=== PATIENT | male | born 1995 | race Caucasian/White ===

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

== ENCOUNTER → 2017-06-14 | Outpatient (CLI) | payer OTHER ==
[~2017-06-14] MED LIST: FLUO20CA19 PO; HYDR-3713 PO; IBUP-1022 PO; LEVA1TAB2 PO; PROZ40CA PO; STRA10CA PO; STRA80CA PO
--- NOTE | 2017-06-14 10:29 | REP ---
SCROTAL ULTRASOUND: 06/14/2017. Clinical history: Bilateral scrotal pain. Findings: No prior study. The right testis is 5.2 x 2.6 x 3.5 cm. The left testis is 5 x 2.4 x 3.1 cm. Both testes are homogeneous in echotexture without mass, cyst or abnormal calcifications. Color images show normal flow in and around each testis. Doppler tracing show resistive index of 0.56 on the right and 0.61 in the left testis. There is no evidence for torsion. No hydrocele or varicocele is noted. The epididymal head has a CC diameter of 8.8 mm on the right, 7.1 mm on the left. No epididymal head cyst, epididymitis or other acute finding. Impression: 1. Normal bilateral scrotal ultrasound. No epididymitis, orchitis, torsion, varicocele, hydrocele, mass or other acute finding. Signed by Tejas Irwin MD 06/14/2017 01:10 P
[2017-06-14 10:30] LABS: BASO # 0.1 10^3/uL (0.0-0.2); EOS # 0.5 10^3/uL (0.0-0.50); EOS % 4.7 % (0.0-3.0); IMMATURE GRANULOCYTE % 0.9 % (0-0); LYMPH # 3.1 10^3/uL (1.5-6.5); LYMPH % 29.9 % (24.0-44.0); MEAN CORPUSCULAR HGB CONC 32.5 g/dl (32.0-36.5); NEUTROPHILS # 5.5 10^3/uL (1.8-7.7); NEUTROPHILS % 53.5 % (36.0-66.0); PLATELET COUNT, AUTOMATED 434 10^3/uL (150-450); RED CELL DISTRIBUTION WIDTH 12.6 % (11.5-14.5); WHITE BLOOD COUNT 10.3 10^3/uL (4.0-10.0)
--- NOTE | 2017-06-14 10:36 | REP ---
LIMITED PELVIC ULTRASOUND: 06/14/2017. Clinical history: Testicular pain. Evaluate for hernia. Findings: Sonographic evaluation of the inguinal canal bilaterally was performed. Exam performed without and with Valsalva maneuver. Diameter of the inguinal canal is measured before and during Valsalva maneuvers. There is no visible mass, fluid collection, bowel within the inguinal canal or changing caliber of the canal of any significance. Impression: 1. No inguinal hernia, mass or other abnormality about the inguinal region. Exam performed bilaterally and both without and with Valsalva maneuver. Signed by Tejas Irwin MD 06/14/2017 01:11 P
[2017-06-14 11:11] LABS: ALBUMIN 3.7 GM/DL (3.2-5.2); ALBUMIN/GLOBULIN RATIO 0.86 (1.00-1.93); ALKALINE PHOSPHATASE 136 U/L (45-117); ALT/SGPT 52 U/L (12-78); ANION GAP 7 MEQ/L (8-16); AST/SGOT 20 U/L (7-37); BILIRUBIN,TOTAL 0.5 MG/DL (0.2-1.0); BLOOD UREA NITROGEN 9 MG/DL (7-18); CALCIUM LEVEL 9.1 MG/DL (8.5-10.1); CARBON DIOXIDE LEVEL 29 MEQ/L (21-32); CHLORIDE LEVEL 105 MEQ/L (98-107); CREATININE FOR GFR 0.84 MG/DL (0.70-1.30); GLUCOSE, FASTING 84 MG/DL (70-105); POTASSIUM SERUM 3.9 MEQ/L (3.5-5.1); SODIUM LEVEL 141 MEQ/L (136-145)
== END ==
LOC: M LAB 09:30
PROVIDERS: ATTEND Nurse Practitioner Family
DX: R35.0 Frequency of micturition (principal)
CPT/HCPCS: 36415; 76857; 76870; 80053; 81001; 85025; 87086; 93976; G0463

== ENCOUNTER 2017-06-20 01:45 | Observation (INO) | payer OTHER ==
[~2017-06-20] VITALS: Ht 175.3 cm; Wt 125.0 kg
[2017-06-20] VITALS (10 sets, daily range): BP systolic 130–145; BP diastolic 60–95; O2SAT 95–96
[~2017-06-20 01:45] MED LIST changes: -FLUO20CA19 PO; -HYDR-3713 PO; -LEVA1TAB2 PO; -PROZ40CA PO; -STRA10CA PO; -STRA80CA PO
[2017-06-20] MEDS ORDERED: PROZ40CA PO (01:53)
[2017-06-20] MEDS ORDERED: STRA10CA PO (01:53)
[2017-06-20] MEDS ORDERED: KETOROLAC 30 MG/ML VIAL (J1885) IV ONE (02:15)
[2017-06-20] MEDS ORDERED: METOCLOPRAMIDE INJ 10MG/2ML VIAL (J2765) IV ONE (02:15)
[2017-06-20] MEDS ORDERED: NS 1,000 ML IV ONE (02:15)
[2017-06-20 02:16] LABS: BASO # 0.1 10^3/uL (0.0-0.2); BASO % 0.6 % (0.0-1.0); EOS # 0.5 10^3/uL (0.0-0.50); EOS % 3.6 % (0.0-3.0); IMMATURE GRANULOCYTE % 0.8 % (0-0); LYMPH # 2.7 10^3/uL (1.5-6.5); LYMPH % 21.1 % (24.0-44.0); MEAN CORPUSCULAR HEMOGLOBIN 27.9 pg (27.0-33.0); MEAN CORPUSCULAR HGB CONC 32.9 g/dl (32.0-36.5); MEAN CORPUSCULAR VOLUME 84.8 fl (80.0-96.0); MONO # 1.2 10^3/uL (0.0-0.8); MONO % 9.4 % (0.0-5.0); NEUTROPHILS # 8.4 10^3/uL (1.8-7.7); NEUTROPHILS % 64.5 % (36.0-66.0); PLATELET COUNT, AUTOMATED 439 10^3/uL (150-450); RED CELL DISTRIBUTION WIDTH 12.7 % (11.5-14.5); WHITE BLOOD COUNT 12.9 10^3/uL (4.0-10.0)
[2017-06-20 02:37] LABS: ALBUMIN 3.9 GM/DL (3.2-5.2); ALBUMIN/GLOBULIN RATIO 0.78 (1.00-1.93); ALKALINE PHOSPHATASE 125 U/L (45-117); ALT/SGPT 57 U/L (12-78); AMYLASE 26 U/L (25-115); ANION GAP 6 MEQ/L (8-16); AST/SGOT 17 U/L (7-37); BILIRUBIN,DIRECT 0.2 MG/DL (0.0-0.2); BILIRUBIN,TOTAL 0.6 MG/DL (0.2-1.0); BLOOD UREA NITROGEN 12 MG/DL (7-18); CALCIUM LEVEL 9.5 MG/DL (8.5-10.1); CARBON DIOXIDE LEVEL 27 MEQ/L (21-32); CHLORIDE LEVEL 104 MEQ/L (98-107); CREATININE FOR GFR 0.89 MG/DL (0.70-1.30); GLUCOSE, FASTING 91 MG/DL (70-105); SODIUM LEVEL 137 MEQ/L (136-145); TOTAL PROTEIN 8.9 GM/DL (6.4-8.2)
--- NOTE | 2017-06-20 03:40 | REPUSA ---
CLINICAL HISTORY: Right flank pain. TECHNIQUE: Multiple axial and coronal CT images were obtained through the abdomen and pelvis without administration of oral or IV contrast material. COMMENTS: The liver is mildly enlarged with decreased attenuation without mass or defect. There is no intra or extrahepatic biliary ductal dilatation. The spleen is normal. The gallbladder is within normal limits . The pancreas is of normal contour and attenuation characteristics. There is no evidence of adrenal mass. The kidneys are normal in size, shape and configuration. No renal or ureteral calculi are identified. There is no hydroureter or hydronephrosis. Enlarged appendix measuring 1.2 cm in its largest transverse dimension with prominent surrounding inf lammatory fat stranding. There is no bowel wall thickening. No evidence for small or large bowel obst ruction. There is no evidence of abdominal ascites or lymphadenopathy. There is no evidence of intrinsic or extrinsic bladder mass. There is no pelvic ascites or lymphadeno liliana. Uncomplicated colonic diverticulosis. Images of the lung bases show no evidence of pleural or parenchymal mass. There are no pleural effusi ons. The bony structures are free of lytic or blastic lesions. IMPRESSION: Acute appendicitis. No perforation or abscess formation. Thank you for your kind referral of this patient.
[2017-06-20] MEDS ORDERED: metroNIDAZOLE 750 MG in APPROPRIATE DILUENT 1 EA IV ONE (04:00)
[2017-06-20] MEDS ORDERED: MORPHINE 4 MG/ML 1ML SYRINGE IV ONE (04:00)
[2017-06-20] MEDS ORDERED: FLUO20CA19 PO (04:18)
[2017-06-20] MEDS ORDERED: STRA80CA PO (04:18)
[2017-06-20] MEDS ORDERED: ONDANSETRON 4MG/2ML VIAL (J2405) IV PRN ×2 (07:00→18:45)
[2017-06-20] MEDS ORDERED: PROMETHAZINE INJ 25 MG/ML VIAL (J2550) IV PRN (07:00)
[2017-06-20] MEDS ORDERED: METOCLOPRAMIDE INJ 10MG/2ML VIAL (J2765) IV PRN (07:00)
[2017-06-20] MEDS: NS 1,000 ML IV SCH ×3 (07:17→20:19)
--- NOTE | 2017-06-20 07:55 | HPE ---
DATE OF ADMISSION: 06/20/2017 CHIEF COMPLAINT: Abdominal pain. HISTORY OF PRESENT ILLNESS: The patient is a 22-year-old male who presents to the emergency room today with acute onset of right upper quadrant pain radiating to his back. He was seen in the emergency room and they felt that it was either a kidney stone given the flank pain that he was having or possibly gallbladder disease. Incidentally, six days prior to admission, the patient had been seen by his primary care provider for right lower quadrant pain with discomfort and pain into the testicle consistent with possibly a kidney stone. He did have an elevated white count of 10,000 at that time and was not placed on antibiotics, but seen and was evaluated by his primary care. Since that time, he still had this right-sided abdominal pain that has been minimal, but not severe. He states that the majority of this went away over the last 48 hours, but last night it developed quite severe and was in a different spot/right upper quadrant. He has had no fevers or chills. No diarrhea. No constipation issues. No blood per rectum. No family history of ulcerative colitis or Crohn's disease. MEDICATIONS: Include fluoxetine 20 mg by mouth daily and Strattera 80 mg by mouth daily. PAST MEDICAL HISTORY: Significant for attention deficit disorder (ADD) and depression. PHYSICAL EXAMINATION: Reveals an obese white male who looks stated age. HEENT: Unremarkable. Neck: Supple without adenopathy. Lungs are clear to auscultation without crackles, wheezes or rhonchi. Heart is regular without murmur. Abdomen is obese, tender in the right upper quadrant and right flank area without significant guarding or rebound. Extremities: Warm, well perfused. His CAT scan shows some minimal edema around the appendix. The appendix itself does not significantly appear to be inflamed; however, I am not seeing any other inflammatory process at this time. The radiologist is not here yet and will discuss the x-ray results with the radiologist. The patient's white count is however elevated to 13,000. IMPRESSION AND PLAN: The patient has right upper quadrant pain; however, his appendix is actually located in the right upper quadrant, and with his pain and discomfort, all consistent with possible early appendicitis. His history, however, is not consistent with a typical appendicitis type of presentation with acute onset or the additional history of the right lower quadrant pain that has been going on for several days. Thus, at this point given that he still has some pain and tenderness in this area, will review the CAT scan and if the CAT scan is highly suggestive of appendicitis and the patient's pain persists, then my recommendation is to proceed with a laparoscopic appendectomy. I have discussed with the patient that I will add him to the end of the day; however, one of the other general surgeons may be able to add it earlier if they can fit it into the schedule. He is in agreement with this and would like to proceed with laparoscopic appendectomy should that be the next course of action. The patient was given IV fluids, IV antibiotics will be made nothing by mouth (n.p.o.) for now.
[2017-06-20] MEDS: CIPROFLOXACIN 400 MG in APPROPRIATE DILUENT 1 EA IV SCH ×2 (08:42→20:19)
[2017-06-20] MEDS: MORPHINE 4 MG/ML 1ML SYRINGE IV PRN ×2 (09:33→15:21)
[2017-06-20] MEDS: KETOROLAC 30 MG/ML VIAL (J1885) IV PRN ×2 (11:19→21:31)
[2017-06-20] MEDS: metroNIDAZOLE 500 MG in APPROPRIATE DILUENT 1 EA IV SCH ×2 (11:19→21:51)
[2017-06-20] MEDS ORDERED: BUPIVACAINE/EPIN 0.25% 30 ML VIAL As Ordered ONE (16:24)
[2017-06-20] MEDS ORDERED: LIDOCAINE 2% INJ 100 MG/5 ML SDV (FOR ANES.) As Ordered ONE (16:28)
[2017-06-20] MEDS ORDERED: fentaNYL 250 MCG/5 ML INJECTION (J3010) As Ordered ONE (16:28)
[2017-06-20] MEDS ORDERED: ROCURONIUM BROMIDE 50 MG/5 ML VIAL/SYRINGE As Ordered ONE (16:28)
[2017-06-20] MEDS ORDERED: PROPOFOL 200 MG/20 ML VIAL As Ordered ONE ×2 (16:28→17:32)
[2017-06-20] MEDS ORDERED: dexameTHASONE 4 MG/ML 1ML VIAL (J1100) As Ordered ONE (16:28)
[2017-06-20] MEDS ORDERED: MIDAZOLAM INJ 2 MG/2 ML VIAL (J2250) As Ordered ONE (16:28)
[2017-06-20] MEDS ORDERED: ONDANSETRON 4MG/2ML VIAL (J2405) As Ordered ONE (16:28)
[2017-06-20] MEDS ORDERED: KETOROLAC 60 MG/2 ML VIAL (J1885) As Ordered ONE (16:28)
[2017-06-20] MEDS ORDERED: PHENYLephrine HCL 500 MCG/5 ML (100MCG/ML) SYRINGE (J2370) As Ordered ONE (17:17)
[2017-06-20] MEDS ORDERED: GLYCOPYRROLATE INJ 0.2 MG/ML 2 ML VIAL As Ordered ONE ×2 (17:19→17:56)
[2017-06-20] MEDS ORDERED: NEOSTIGMINE 10 MG/10 ML VIAL (J2710) As Ordered ONE (17:19)
[2017-06-20] MEDS ORDERED: HYDROmorphone HCL 2 MG/ML 1ML VIAL (J1170) As Ordered ONE (17:47)
[2017-06-20] MEDS ORDERED: SUGAMMADEX SODIUM 500 MG/5 ML VIAL (BRIDION) As Ordered ONE (17:51)
[2017-06-20] MEDS ORDERED: NALOXONE INJ 0.4 MG/1 ML VIAL (J2310) As Ordered ONE (18:24)
[2017-06-20] MEDS ORDERED: MEPERIDINE INJ 25 MG/ML VIAL (J2175) IV PRN (18:45)
[2017-06-20] MEDS ORDERED: fentaNYL 100 MCG/2 ML INJECTION (J3010) IV PRN (18:45)
[2017-06-20] MEDS ORDERED: PERCOCET 5MG/325MG TAB PO PRN (18:45)
[2017-06-20] MEDS ORDERED: LR 1,000 ML IV SCH (18:45)
[2017-06-21] VITALS (7 sets, daily range): BP systolic 128–140; BP diastolic 58–80; O2SAT 95–97
[2017-06-21] MEDS: MORPHINE 4 MG/ML 1ML SYRINGE IV PRN ×4 (00:34→15:37)
[2017-06-21] MEDS: metroNIDAZOLE 500 MG in APPROPRIATE DILUENT 1 EA IV SCH ×2 (04:11→12:02)
[2017-06-21] MEDS: CIPROFLOXACIN 400 MG in APPROPRIATE DILUENT 1 EA IV SCH (07:38)
[2017-06-21] MEDS ORDERED: POTASSIUM CHLORIDE 10 MEQ SR TABLET PO ONE ×2 (08:00→12:00)
[2017-06-21] MEDS ORDERED: SLF 3 ML SYR IV PRN (08:00)
[2017-06-21] MEDS: NS 1,000 ML IV SCH ×2 (08:35→09:27)
[2017-06-21] MEDS: KETOROLAC 30 MG/ML VIAL (J1885) IV PRN ×2 (10:33→16:42)
[2017-06-21] MEDS ORDERED: SLF 3 ML SYR IV SCH (14:00)
[2017-06-21] MEDS ORDERED: HYDR-3713 PO (16:56)
[2017-06-21] MEDS ORDERED: IBUP-1022 PO (16:56)
[2017-06-21] MEDS ORDERED: LEVA1TAB2 PO (16:56)
[2017-06-22] MEDS ORDERED: INFLUENZA QUADRIVALENT PF VACCINE 0.5ML SYRINGE (90686) IM ONE (09:00)
--- NOTE | 2017-06-26 13:57 | RO ---
DATE OF PROCEDURE: 06/20/2017 PREOPERATIVE DIAGNOSIS: Acute appendicitis. POSTOPERATIVE DIAGNOSIS: Acute appendicitis. PROCEDURE: Laparoscopic appendectomy. SURGEON: Efra Sky MD CIRCUIT [employer]AKER [employer]SEMBLER: ANESTHESIA: General endotracheal anesthesia. ESTIMATED BLOOD LOSS: Minimal. FLUIDS: Crystalloid. BRIEF PROCEDURE SUMMARY: The patient was brought to the operating room, was given general anesthesia. After adequate anesthesia and preoperative antibiotics were given, the patient was prepped and draped in a sterile fashion. Next, a supraumbilical incision was made with skin knife. Blunt dissection was carried down to fascia. Fascia was grasped Stacey clamps, elevated and a Veress needle placed into the abdominal cavity, insufflated to 15 mm pressure. A dilating 12 mm trocar was placed at the umbilicus under direct visualization and epigastric and left upper quadrant 5 mm trocars were placed given that the appendix was abutting the liver on the right side. Thus, the patient was placed in the left side down position and the appendix could be seen. It was dissected off surrounding tissue. The mesoappendix was tightly adherent to the cecum and this was able to be mobilized off that area after some minimal blunt dissection, but more importantly using Harmonic scalpel mobilizing this area and mobilizing through the mesentery of the appendix. I was able to mobilize the rest of the appendix off the cecum in this manner. Eventually, this was mobilized all the way to the base of the appendix to the cecal wall and a AV stapler was placed across the base of the cecum and the appendix brought out in a EndoCatch bag. The right upper quadrant was copiously irrigated until clear and all trocars were removed under direct visualization. #0 Vicryl was used close the fascia at the umbilicus and all incisions were closed with #4-0 Vicryl. Steri-Strips and dry sterile dressing was applied. The patient was awakened, extubated, brought to the recovery room awake, alert and hemodynamically stable. Sponge and needle counts correct times two.
== END 2017-06-21 18:15 | disposition home or self-care (01) ==
LOC: M ED 01:45 → M ED INP 06:55 → M PED 09:17
PROVIDERS: ADMIT Surgery; ATTEND Surgery
DX: K35.89 Other acute appendicitis (principal); F32.9 Major depressive disorder, single episode, unspecified; F90.9 Attention-deficit hyperactivity disorder, unspecified type; Z79.899 Other long term (current) drug therapy
CPT/HCPCS: 44970; 74176; 80048; 80076; 81001; 82150; 83690; 85025; 87086; 88304; 96374; 96375; 99284; J0744; J1100; J1170; J1885; J2250; J2310; J2370; J2405; J2765; J3010

== ENCOUNTER 2018-02-17 22:46 | Emergency (ER) | payer OTHER ==
[2018-02-18] MEDS: NORCO 5/325MG TABLET (BULK FOR ED) PO (00:50)
== END 2018-02-18 00:54 | disposition home or self-care (01) ==
LOC: M ED 22:46
DX: S43.101A Unspecified dislocation of right acromioclavicular joint, initial encounter (principal); S46.211A Strain of muscle, fascia and tendon of other parts of biceps, right arm, initial encounter; X50.1XXA Overexertion from prolonged static or awkward postures, initial encounter; Y92.9 Unspecified place or not applicable; Y93.89 Activity, other specified; Y99.0 Civilian activity done for income or pay; Z88.0 Allergy status to penicillin
CPT/HCPCS: 73030

== ENCOUNTER → 2018-08-07 | Outpatient (REF) | payer OTHER ==
[~2018-08-07] MED LIST changes: +FLUO20CA19 PO; +HYDR-3713 PO; +LEVA1TAB2 PO; +NORCOTAB PO; +PROZ40CA PO; +STRA10CA PO; +STRA80CA PO
== END ==
LOC: M LAB REF 11:58
PROVIDERS: ATTEND Physician Assistant Medical
DX: J02.9 Acute pharyngitis, unspecified (principal)

== ENCOUNTER → 2020-02-16 | Outpatient (CLI) | payer OTHER, SELFPAY ==
[~2020-02-16] MED LIST changes: -FLUO20CA19 PO; +FLUO20CA22 PO; +HYDR-3715 PO; -NORCOTAB PO
== END ==
LOC: M LABSMTC 09:30
PROVIDERS: ATTEND Family Medicine
DX: Z03.818 Encounter for observation for suspected exposure to other biological agents ruled out (principal); Z11.59 Encounter for screening for other viral diseases
CPT/HCPCS: C9803; U0003